=== PATIENT | male | born 1960 | race Caucasian/White ===

== ENCOUNTER 2017-10-26 01:18 | Emergency (ER) | payer OTHER ==
[~2017-10-26] VITALS: Ht 167.6 cm; Wt 74.8 kg
[~2017-10-26 01:18] MED LIST: FERROUS SULFAT325 M1 PO; METFORMIN HCL500 MG PO; MULTIVITAMIN1 TAB PO; NADOLOL40 MG PO; NORCO 325 MG-51 TAB PO; PRILOSEC 20MG C20 MG PO; PROTONIX 40MG T40 MG PO
--- NOTE | 2017-10-26 01:47 | ED GENERAL ADULT ---
History of Present Illness General Chief Complaint: General Adult Stated Complaint: " RECTAL BLEEDING [id number], HERNIA" Source: patient, family, old records Exam Limitations: no limitations Vital Signs & Intake/Output Vital Signs & Intake/Output Vital Signs Date Time Temp Pulse Resp B/P B/P Pulse O2 O2 Flow FiO2 Mean Ox Delivery Rate 10/26 0845 98.9 96 18 129/74 97 Room Air 10/26 0800 98.4 100 18 136/74 96 Room Air 10/26 0745 98.6 96 16 132/69 97 Room Air 10/26 0704 99.0 90 20 117/65 98 Room Air 10/26 0408 99.0 94 20 154/80 97 10/26 0357 98.7 104 20 145/78 99 Room Air 10/26 0125 99.0 110 18 177/83 98 Room Air Allergies Coded Allergies: NO KNOWN ALLERGIES (10/27/14) Triage Nurses Notes Reviewed? yes HPI: Patient presents with weakness and fatigue. Patient states that earlier this week he had dark red blood per rectum. The symptoms lasted 2 days and then resolved. There is no nausea or vomiting. Patient states that he stopped bleeding 3 days ago but he still feels weak so he came in for evaluation. Patient has required blood transfusions in the past. (Xuan CHAO,Desmond Roy) Reconcile Medications No Known Home Medications (Clarice CHAO,Jay England) Past History Travel History Traveled to [place] past 21 day No Medical History Any Pertinent Medical History? 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 No (Xuan CHAO,Desmond Roy) Review of Systems Review of Systems Constitutional: Reports: see HPI, weakness. EENTM: Reports: no symptoms. Respiratory: Reports: no symptoms. Cardiovascular: Reports: no symptoms. GI: Reports: see HPI. Genitourinary: Reports: no symptoms. Musculoskeletal: Reports: no symptoms. Skin: Reports: no symptoms. Neurological/Psychological: Reports: no symptoms. Hematologic/Endocrine: Reports: no symptoms. Immunologic/Allergic: Reports: no symptoms. All Other Systems: Reviewed and Negative (Xuan CHAO,Desmond Roy) Physical Exam Physical Exam General Appearance: well developed/nourished, alert, awake, moderate distress Head: atraumatic, normal appearance Eyes: Bilateral: PERRL, pale conjunctivae. Ears, Nose, Throat: normal pharynx, normal ENT inspection, hearing grossly normal Neck: normal inspection, supple, full range of motion Respiratory: normal breath sounds, chest non-tender, no respiratory distress, lungs clear Cardiovascular: regular rate/rhythm, normal peripheral pulses Gastrointestinal: normal bowel sounds, soft, non-tender, no organomegaly Back: normal inspection, normal range of motion Extremities: normal inspection, normal capillary refill, normal range of motion, no edema Neurologic/Psych: no motor/sensory deficits, awake, alert, oriented x 3, normal mood/affect Skin: intact, normal color, warm/dry Core Measures ACS in differential dx? No CVA/TIA Diagnosis: No Sepsis Present: No Sepsis Focused Exam Completed? No (Xuan CHAO,Desmond Roy) Progress Differential Diagnoses I considered the following diagnoses in my evaluation of the patient: [GI bleed, anemia] Plan of Care: Orders Procedure Date/time Status Consistent Carbohydrate 3 10/26 B Active FingerStick- Glucose 10/26 1039 Active FingerStick- Glucose 10/26 0848 Active BLOOD PRODUCT PICKUP 10/26 0703 Active BLOOD PRODUCT PICKUP 10/26 0400 Active LEUKOCYTE POOR (PACKED CELLS) 10/26 0303 Active PARTIAL THROMBOPLASTIN TIME 10/26 0150 Complete PROTHROMBIN TIME 10/26 015 Complete COMPREHENSIVE METABOLIC PANEL 10/26 015 Complete CBC WITHOUT DIFFERENTIAL 10/26 0150 Complete TYPE & SCREEN (NOT X-MATCH) 10/26 0150 Complete Laboratory Tests 10/26/17 0200: Anion Gap 11, Estimated GFR > 60, BUN/Creatinine Ratio 17.1, Glucose 934 *H, Calcium 7.8 L, Total Bilirubin 0.5, AST 21, ALT 29, Alkaline Phosphatase 127 H , Total Protein 6.0 L, Albumin 3.2 L, Globulin 2.8, Albumin/Globulin Ratio 1.1 , PT 14.9 H, INR 1.36 H, APTT 24 L, CBC w Diff MAN DIFF ORDERED, RBC 2.43 L, MCV 77.0 L, MCH 23.9 L, MCHC 31.0 L, RDW 17.7 H, MPV 11.6 H, Gran % 83.7 H , Lymphocytes % 7.5 L, Monocytes % 8.4, Eosinophils % 0.2, Basophils % 0.2, Absolute Granulocytes 4.4, Segmented Neutrophils 86 H, Band Neutrophils 1, Absolute Lymphocytes 0.4 L, Lymphocytes 7 L, Monocytes 5, Absolute Monocytes 0.4, Absolute Eosinophils 0, Basophils 1, Absolute Basophils 0, Platelet Estimate DECREASED, Polychromasia 1+, Hypochromic-Microcytic 2+, Basophilic Stippling 1+, Anisocytosis 1+, Stomatocytes 1+, Elliptocytes FEW Initial ED EKG: none Hand-Off Endorsed To: Jay Oneil MD Endorsed Time: 0700 Pending: other (RE-EVAL) Comments: Patient advised that his blood sugar. Patient states he did not know that he was a diabetic. Patient states that he was prescribed metformin but thought he only had to take for 1 month and then everything would be fine. (Xuan CHAO,Desmond Roy) Comments: 10/26/2017 7:23:38 AM patient signed out to me by Dr. Govea at shift change advisor. (Clarice CHAO,Jay England) Departure Departure Disposition: HOME OR SELF CARE Condition: Stable Clinical Impression Primary Impression: Symptomatic anemia Secondary Impressions: Hyperglycemia Departure Forms: Customer Survey General Discharge Information (Desmond Govea MD) Departure Referrals: Desmond Navarro MD Patient Has No Primary Care Dr (PCP/Family) Jasper CHAO,Michael Additional Instructions: FOLLOW UP WITH YOUR ASSISTANT FINANCE DIRECTOR this week. Strict diabetic diet. Consider iron supplement. Contact Dr. Navarro or Dr. rivera (endocrinology) to manage your diabetes. Contact the [place] [facility] care practice for general medical evaluation as soon as possible (see below) TAKE METFORMIN TWICE A DAY RETURN FOR ANY CONCERNS If you do not currently have a primary care physician then please contact the [facility] primary care practice at the following phone number: . Please note that there might be incidental findings in your evaluation that are unrelated to the current emergency department visit. Please notify your primary care doctor about this emergency department visit in order to obtain and review all of the testing performed so that these incidental findings can be monitored as needed. If you had an x-ray performed, please understand that some fractures may not be seen on the initial set of x-rays. If your symptoms persist you might need a repeat set of x-rays to check for such a fracture. If you had a laceration evaluated, please understand that foreign bodies such as glass or wood may not be visible to the naked eye or on plain x-rays. If the wound becomes red, swollen, increasingly more painful or if there is any drainage from the wound, please have it reevaluated by a physician for the possibility of a retained foreign body. If you're unable to follow up as outlined in the discharge instructions please return to the emergency department. Thank you for choosing the [facility] Emergency Department for your care. It was a pleasure to serve you today. Jay Oneil M.D. [facility] Prescriptions: Current Visit Scripts Metformin HCl 1 TAB PO BID #30 TAB (Clarice CHAO,Jay England) Critical Care Note Critical Care Note Critical Care Time: non-applicable (Xuan CHAO,Desmond Roy)
[2017-10-26 02:23] LABS: ABSOLUTE BASOPHIL COUNT 0 /CUMM (0.0-0.2); ABSOLUTE EOSINOPHIL COUNT 0 /CUMM (0.0-0.7); ABSOLUTE GRANULOCYTE CT 4.4 /CUMM (1.4-6.5); ABSOLUTE LYMPH COUNT 0.4 /CUMM (1.2-3.4); ABSOLUTE MONOCYTE COUNT 0.4 /CUMM (0.10-0.60); BASOPHIL % 0.2 % (0.0-2.0); EOSINOPHIL % 0.2 % (0-5); GRANULOCYTE % 83.7 % (42.2-75.2); MEAN CORPUSCULAR HGB 23.9 PG (27.0-31.0); MEAN PLATELET VOLUME 11.6 FL (7.4-10.4); PLATELET COUNT 63 /CUMM (130-400); RBC DISTRIBUTION WIDTH 17.7 % (11.5-14.5); RED BLOOD CELL CT 2.43 /CUMM (4.70-6.10); WHITE BLOOD CELL COUNT 5.3 /CUMM (4.8-10.8)
[2017-10-26 02:30] LABS: PT 14.9 SEC (9.4-12.5); PTT 24 SEC (25-37)
[2017-10-26 03:02] LABS: HEMATOCRIT 18.7 % (42-52)
[2017-10-26] MEDS ORDERED: METFORMIN HCL500 M3 PO ×2 (03:09→11:06)
--- NOTE | 2017-10-26 08:08 | RADIOLOGY REPORT ---
EXAMINATION: XR PORTABLE CHEST CLINICAL INFORMATION: Cough after 4 L normal saline COMPARISON: 10/27/2014 TECHNIQUE: Portable frontal view of the chest was obtained. FINDINGS: The lungs are clear with no focal consolidation. No evidence of pneumothorax, pulmonary edema, or pleural effusions. The cardiomediastinal silhouette is unremarkable. No acute osseous findings. IMPRESSION: No acute cardiopulmonary findings.
[2017-10-26 09:45] VITALS: BP 129/74
== END 2017-10-26 11:12 ==
LOC: ERH 01:18
PROVIDERS: Emergency Medicine
DX: D64.9 Anemia, unspecified (principal); E11.65 Type 2 diabetes mellitus with hyperglycemia
CPT/HCPCS: 71045; 86920; 96361; 96365; 96366; P9016

== ENCOUNTER 2017-11-10 11:10 | Emergency (ER) | payer OTHER ==
[~2017-11-10] VITALS: Ht 167.6 cm; Wt 83.5 kg
[~2017-11-10 11:10] MED LIST changes: +METFORMIN HCL500 M3 PO
--- NOTE | 2017-11-10 12:00 | ED GI/GU/ABDOMINAL COMPLAINT ---
History of Present Illness General Chief Complaint: Abdominal Pain/Flank Pain Stated Complaint: ABD PAIN Source: patient, old records Exam Limitations: no limitations Vital Signs & Intake/Output Vital Signs & Intake/Output Vital Signs Date Time Temp Pulse Resp B/P B/P Pulse O2 O2 Flow FiO2 Mean Ox Delivery Rate 11/10 1516 109 18 150/85 99 Room Air 11/10 1335 98.9 104 20 110/60 96 Room Air ED Intake and Output 11/11 0000 11/10 1200 Intake Total Output Total Balance Patient 184 lb Weight Weight Reported by Patient Measurement Method Allergies Coded Allergies: No Known Allergies (11/10/17) Reconcile Medications Metformin HCl 500 MG TABLET 1 TAB PO BID DIABETES Triage Note: PT SENT TO ED BY [facility] FOR ABD DISTENTION, PROTRUDING HERNIA AND POOR PO INTAKE. PT HAS HX OF LIVER CIRRHOSIS, PREVIOUS ETOH HISTORY, SOBER X 25 YEARS. RECENTLY ADMITTED AND DISCHARGED FROM THIS FACILITY FOR HYPERGLYCEMIA 1 WEEK AGO. ABD PAIN AND DISTENTION STARTED JUST AFTER DISCHARGE. GAINED 10 POUNDS IN ONE WEEK. SIGNIFICANT ABD DISTENTION IN TRIAGE. PT ALSO NOTED TO BE PALE. DENIES +NAUSEA, -V/D. HASN'T EATEN IN THREE DAYS. Triage Nurses Notes Reviewed? yes Onset: Abrupt Duration: day(s):, constant Timing: recent history Quality/Severity: moderate, severe Location: generalized abdomen Radiation: no radiation Prior Abdominal Problems: none No Modifying Factors: none HPI: 57-year-old male comes into the emergency room with complaints of abdominal distention pain and swelling in his legs. Patient has a history of liver cirrhosis. Patient reports that he was here in the emergency room on October 26. He was having some blood in his stool that time. He was transfused blood and discharged home. He reports that since he was discharges when he started to experience the abdominal swelling and discomfort. The blood in his stool resolved. He was recently started on metformin. Denies any fever or vomiting. He is having bowel movements. Denies any other associated symptoms at this time. He reports that he is having some swelling in his lower legs as well. Denies any chest pain or shortness of breath. He comes in for further evaluation. Past History Travel History Traveled to [place] past 21 day No Medical History Any Pertinent Medical History? 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 No Review of Systems Review of Systems Constitutional: Reports: no symptoms. EENTM: Reports: no symptoms. Respiratory: Reports: no symptoms. Cardiovascular: Reports: no symptoms. GI: Reports: see HPI. Genitourinary: Reports: no symptoms. Musculoskeletal: Reports: no symptoms. Skin: Reports: no symptoms. Neurological/Psychological: Reports: no symptoms. Hematologic/Endocrine: Reports: no symptoms. Immunologic/Allergic: Reports: no symptoms. All Other Systems: Reviewed and Negative Physical Exam Physical Exam General Appearance: alert, awake Head: atraumatic Eyes: Bilateral: normal appearance. Ears, Nose, Throat, Mouth: moist mucous membrane Neck: normal inspection Respiratory: normal breath sounds, no respiratory distress Cardiovascular: regular rate/rhythm Gastrointestinal: normal bowel sounds, soft, distention Back: normal inspection Extremities: pedal edema (2+) Neurologic/Psych: awake, alert, oriented x 3 Skin: intact, pallor Core Measures ACS in differential dx? No Sepsis Present: No Sepsis Focused Exam Completed? No Progress Differential Diagnosis: bowel obstruction, cholecystitis, diverticulitis, gastritis, UTI/pyelo, ascites, SBP, liver CA, Plan of Care: Laboratory Tests 11/10/17 1445: Lactic Acid Cancelled Microbiology 11/10 1158 BLOOD: Blood Culture - RECD Diagnostic Imaging: Viewed by Me: CT Scan. Discussed w/RAD: CT Scan. Radiology Impression: PATIENT: ADONAY NÚÑEZ PRESENT AGE : 57 PATIENT ACCOUNT NO: [id number] : 56 LOCATION: [facility] ORDERING PHYSICIAN: Yogi GALVIN SERVICE DATE: 11/10/17-1144 EXAM TYPE: CAT - CT ABD & PELVIS W IV CONTRAST EXAMINATION: CT ABDOMEN AND PELVIS WITH CONTRAST CLINICAL INFORMATION: Abdominal pain and distention. COMPARISON: None TECHNIQUE: Multidetector volumetric imaging was performed of the abdomen and pelvis following IV administration of 95 mL of Optiray 320 intravenous contrast. Sagittal and coronal reformatted images were obtained on the technologist's workstation. DLP: 558 mGy-cm FINDINGS: LUNG BASES: Right basilar subsegmental atelectasis. Coronary artery calcifications are present. LIVER, GALLBLADDER, AND BILIARY TREE: The liver is normal in size with a somewhat nodular Contour. There are multiple heterogeneous hypoattenuating lesions seen throughout the right lobe of the liver. For instance, irregular 2.4 cm lesion posteriorly as seen on image 2/22. The portal vein is patent, appearing mildly prominent. Recanalization of the umbilical vein. The gallbladder is contracted. There is a moderate volume of ascites with diffuse stranding throughout the mesenteric fat. PANCREAS: Unremarkable. SPLEEN: Splenomegaly. The spleen measures 26 cm in CC dimension. No focal lesion. ADRENAL GLANDS: Unremarkable. KIDNEYS AND URETERS: The kidneys are normal in size, shape, and attenuation. No hydronephrosis, hydroureter, or calculi seen. No perinephric stranding. There is a 1 cm hypoattenuating lesion at the lower pole of the left kidney which measures slightly higher than simple fluid. BLADDER: Unremarkable. GASTROINTESTINAL TRACT : The stomach is unremarkable. The small bowel is normal in caliber. No obstruction. No colonic wall thickening or inflammatory change. Normal appendix. No free air. ABDOMINAL WALL: Umbilical hernia containing fat and a small amount of fluid. Diffuse anasarca. LYMPH NODES: There is a prominent cavum node with a short axis dimension of 1.9 cm, series 2 image 33. VASCULAR: Normal caliber aorta with mild atherosclerotic calcifications. Prominent varices in the upper abdomen. PELVIC VISCERA: The prostate and seminal vesicles are unremarkable. OSSEOUS STRUCTURES: There is a total right hip arthroplasty. The visualized component appears intact. Heterotopic ossification adjacent to the greater trochanter. IMPRESSION: Cirrhotic liver with findings of portal hypertension. There is marked splenomegaly. Ascites and varices are present. There is appearance of diffuse heterogeneous lesions throughout the right lobe of the liver. The appearance is concerning for neoplasm. This can be further evaluated with MRI. Prominent portacaval lymph node is nonspecific, but metastatic disease is not excluded. This critical result was discussed with KAMAR Cabrera by telephone at 11/10/2017 1:41 PM and it was ascertained that the content and urgency of the report was understood at the time of direct communication. DICTATED BY: Edwin Duarte MD DATE/TIME DICTATED:11/10/171329 DISMANTLER:VINEET DATE/TIME TRANSCRIBED:11/10/171329 CONFIDENTIAL, DO NOT COPY WITHOUT APPROPRIATE AUTHORIZATION. <Electronically signed in Other Vendor System> SIGNED BY: Edwin Duarte MD 11/10/17 1346 Initial ED EKG: normal sinus rhythm, rate (113) Comments: 11/10/17 Patient clinically looks well. Patient is in no apparent distress. Patient is nontoxic-appearing. Patient denies any blood in his stool. His CBC is improved from a couple weeks ago. He is hemodynamically stable. Spoke with the pts director data analytics Dr. ACOSTA FROM [facility]. patient needs close interval follow-up for MRI of the liver. He will be need to be set up with liver transplant from [facility]. Patient has acute on chronic issues but has nothing that requires him to be admitted to the hospital this time. He is afebrile. No white count. He does not appear to be toxic appearing. No suspicion for SBP. Considered the diagnosis but feel it is unlikely at this time. Case was discussed with Dr. Oneil. As I said before I spoke with the patient's director data analytics. They're both in agreement with plan of care and patient can follow-up as an outpatient. He is no respiratory distress. He is upset about the ascites but he does not require an emergent diagnostic or therapeutic tap at this time. He is going to be set up with interventional radiology. Patient was reevaluated multiple times. He has no complaints of chest pain or shortness of breath. No suspicion for any type of cardiac event going on. He has not seen his GI doctor in some time in the director data analytics told me that they're going to call him today to set up an appointment for close follow-up. All questions were addressed with the patient. I went over to CT scan results with him expressing my concern that this could be malignancy of liver. I cannot stress enough how important I told him it is that he needs close follow-up with his GI doctor. Departure Departure Disposition: HOME OR SELF CARE Condition: Stable Clinical Impression Primary Impression: Liver cirrhosis Secondary Impressions: Ascites, Liver masses Referrals: Patient Has No Primary Care Dr Additional Instructions: It is important he follow-up with your director data analytics within the next 48 hours. Return to the emergency room immediately if any recurrent blood in your stool, fever, vomiting, lightheaded dizziness or any other concerns worsening symptoms. Please go over the CT scan results with her director data analytics in regards to the liver masses seen. These will require further evaluation and workup to rule out any type of malignancy. Please go over all results of today's visit with your primary care doctor. Contact your primary care doctor to let them know you were here in the emergency room. There may be nonspecific findings which may not be related to your visit today here in the emergency room but may require further evaluation and chronic monitoring by your primary care doctor. If you had a laceration today the chance of foreign body always remains. You should follow-up with your primary care doctor for recheck in 3-5 days for a wound check. If you had an x-ray done there is a chance that a fracture could have been missed on initial read and you should follow-up with your primary care doctor for repeat x-rays if symptoms persist. If your blood pressure was elevated here in the emergency room please have rechecked by [facility] primary care doctor within the next 48. If you were prescribed a narcotic here in the emergency room or any type of controlled substances you're not allowed to drive while taking this medication or operate any type of heavy machinery. Narcotics can make you feel lightheaded dizziness nausea and can cause constipation. You may need to supervisor of research a stool softener. Thank you for choosing [facility] emergency room. Please return to the emergency room immediately if you have any other concerns worsening of symptoms. Departure Forms: Customer Survey General Discharge Information PA/FARM MACHINERY ERECTOR Co-Sign Statement Statement: ED Attending supervision documentation- [] I saw and evaluated the patient. I have also reviewed all the pertinent lab results and diagnostic results. I agree with the findings and the plan of care as documented in the PA's/FARM MACHINERY ERECTOR's documentation. [X] I have reviewed the ED Record and agree with the PA's/FARM MACHINERY ERECTOR's documentation. [] Additions or exceptions (if any) to the PAs/FARM MACHINERY ERECTOR's note and plan are summarized below: []
[2017-11-10 12:12] LABS: ABSOLUTE BASOPHIL COUNT 0 /CUMM (0.0-0.2); ABSOLUTE EOSINOPHIL COUNT 0 /CUMM (0.0-0.7); ABSOLUTE GRANULOCYTE CT 7.4 /CUMM (1.4-6.5); ABSOLUTE LYMPH COUNT 0.6 /CUMM (1.2-3.4); ABSOLUTE MONOCYTE COUNT 0.7 /CUMM (0.10-0.60); BASOPHIL % 0.2 % (0.0-2.0); EOSINOPHIL % 0.3 % (0-5); HEMATOCRIT 24.5 % (42-52); MEAN CORPUSCULAR HGB CONC 31.3 G/DL (33.0-37.0); MEAN CORPUSCULAR VOLUME 73.7 FL (80.0-94.0); RBC DISTRIBUTION WIDTH 18.1 % (11.5-14.5); RED BLOOD CELL CT 3.32 /CUMM (4.70-6.10); WHITE BLOOD CELL COUNT 8.7 /CUMM (4.8-10.8)
[2017-11-10 12:32] LABS: PT 15.7 SEC (9.4-12.5); PTT 30 SEC (25-37)
[2017-11-10 12:39] LABS: PLATELET COUNT 83 /CUMM (130-400)
--- NOTE | 2017-11-10 13:45 | CT SCAN REPORT ---
EXAMINATION: CT ABDOMEN AND PELVIS WITH CONTRAST CLINICAL INFORMATION: Abdominal pain and distention. COMPARISON: None TECHNIQUE: Multidetector volumetric imaging was performed of the abdomen and pelvis following IV administration of 95 mL of Optiray 320 intravenous contrast. Sagittal and coronal reformatted images were obtained on the technologist's workstation. DLP: 558 mGy-cm FINDINGS: LUNG BASES: Right basilar subsegmental atelectasis. Coronary artery calcifications are present. LIVER, GALLBLADDER, AND BILIARY TREE: The liver is normal in size with a somewhat nodular Contour. There are multiple heterogeneous hypoattenuating lesions seen throughout the right lobe of the liver. For instance, irregular 2.4 cm lesion posteriorly as seen on image 2/22. The portal vein is patent, appearing mildly prominent. Recanalization of the umbilical vein. The gallbladder is contracted. There is a moderate volume of ascites with diffuse stranding throughout the mesenteric fat. PANCREAS: Unremarkable. SPLEEN: Splenomegaly. The spleen measures 26 cm in CC dimension. No focal lesion. ADRENAL GLANDS: Unremarkable. KIDNEYS AND URETERS: The kidneys are normal in size, shape, and attenuation. No hydronephrosis, hydroureter, or calculi seen. No perinephric stranding. There is a 1 cm hypoattenuating lesion at the lower pole of the left kidney which measures slightly higher than simple fluid. BLADDER: Unremarkable. GASTROINTESTINAL TRACT: The stomach is unremarkable. The small bowel is normal in caliber. No obstruction. No colonic wall thickening or inflammatory change. Normal appendix. No free air. ABDOMINAL WALL: Umbilical hernia containing fat and a small amount of fluid. Diffuse anasarca. LYMPH NODES: There is a prominent cavum node with a short axis dimension of 1.9 cm, series 2 image 33. VASCULAR: Normal caliber aorta with mild atherosclerotic calcifications. Prominent varices in the upper abdomen. PELVIC VISCERA: The prostate and seminal vesicles are unremarkable. OSSEOUS STRUCTURES: There is a total right hip arthroplasty. The visualized component appears intact. Heterotopic ossification adjacent to the greater trochanter. IMPRESSION: Cirrhotic liver with findings of portal hypertension. There is marked splenomegaly. Ascites and varices are present. There is appearance of diffuse heterogeneous lesions throughout the right lobe of the liver. The appearance is concerning for neoplasm. This can be further evaluated with MRI. Prominent portacaval lymph node is nonspecific, but metastatic disease is not excluded. This critical result was discussed with KAMAR Cabrera by telephone at 11/10/2017 1:41 PM and it was ascertained that the content and urgency of the report was understood at the time of direct communication.
[2017-11-10 15:16] VITALS: BP 150/85
== END 2017-11-10 15:25 ==
LOC: ERH 11:10
PROVIDERS: Physician Assistant Medical
DX: K74.60 Unspecified cirrhosis of liver (principal); R16.0 Hepatomegaly, not elsewhere classified; R18.8 Other ascites; E11.9 Type 2 diabetes mellitus without complications; Z79.84 Long term (current) use of oral hypoglycemic drugs
CPT/HCPCS: 74177; 87040; 93005; 93010